=== PATIENT | male | born 1980 | race Caucasian/White ===

== ENCOUNTER 2019-02-09 09:34 | Emergency (ER) | payer MEDICARE, OTHER ==
--- NOTE | 2019-02-09 10:18 | ED ---
Upper Extremity Pain - HPI Summary HPI Summary: 39-year-old male who presents with ankle and wrist pain after fall yesterday. Patient states he is on the roof on a ladder approximately 16 feet, slipped off and fell. Patient attempted to grab the gutter on the way down. Patient landed on his left wrist and left ankle. No head trauma, no LOC. Patient has been ambulatory since there is reporting pain in the left ankle and left wrist. Pain is 3/10, achy worse in left ankle. Patient denies neck or back pain, hx of back surgery. Patient took Motrin for pain prior to arrival. Patient is requesting MRI, discussed with patient that this could be done outpatient if his x-rays are negative. Patient agreeable to x-rays. PMHx: ADHD for which he takes Adderall, substance use for which he takes Suboxone. Patient smokes tobacco and he drinks alcohol. Denies pertinent FHx. Surgical hx: back surgery. - History of Current Complaint Chief Complaint: EDFall Stated Complaint: FELL/INJURIES PER PT Time Seen by Provider: 02/09/19 09:46 Hx Obtained From: Patient Mechanism Of Injury: Fall From Height Of: - approximately 16 feet Onset/Duration: Started Days Ago - 1, Still Present Timing: Constant Severity Currently: Mild - 3/10 Pain Location: Wrist - left, Other: - left ankle Associated Signs & Symptoms: Positive: Negative - LOC. Negative: Back Pain, Neck Pain - Allergies/Home Medications Allergies/Adverse Reactions: Allergies Allergy/AdvReac Type Severity Reaction Status Date / Time No Known Allergies Allergy Verified 02/09/19 09:46 Home Medications: Home Medications ALPRAZolam TAB* [Xanax TAB*] 0.25 mg PO BID PRN 02/09/19 [History Confirmed ] Buprenorp/Nalox 8-2 MG SL TAB [Suboxone 8-2 mg SL TAB*] 1 tab.sl SL TID [History Confirmed 02/09/19] Dextroamphetamine/Amphetamine [Adderall Xr 30 mg Capsule] 30 mg PO DAILY [History Confirmed 02/09/19] Gabapentin TAB(NF) [Neurontin 600 mg TAB(NF)] 600 mg PO .5 TIMES DAILY 02/09/19 [History Confirmed 02/09/19] Ibuprofen TAB* [Advil TAB*] 200 mg PO Q6H PRN 02/09/19 [History Confirmed ] PMH/Surg Hx/FS Hx/Imm Hx Musculoskeletal History: Reports: Other Musculoskeletal History - herniated discs Sensory History: Denies: Hx Contacts or Glasses, Hx Hearing Aid Opthamlomology History: Denies: Hx Contacts or Glasses Psychiatric History: Reports: Hx Attention Deficit Hyperactivity Disorder, Hx Substance Abuse - Surgical History Surgery Procedure, Year, and Place: BLOOD CLOT- CELLULITIS-ABSCESS- [facility] Hx Anesthesia Reactions: No Infectious Disease History: No Infectious Disease History: Denies: Traveled Outside the [place] in Last 30 Days - Family History Known Family History: Negative: Cardiac Disease - Social History Alcohol Use: Occasionally Hx Substance Use: No Substance Use Type: Reports: Prescribed Substance Use Comment - Amount & Last Used: HX OF USE IN THE PAST BUT NOT IN RECENT YEARS, on Suboxone Hx Tobacco Use: Yes Smoking Status (MU): Heavy Every Day Tobacco Smoker Amount Used/How Often: 1 PPD X 18 YEARS Have You Smoked in the Last Year: Yes Review of Systems Musculoskeletal: Negative - neck pain, back pain Positive: Other - left wrist pain, left ankle pain Neurological: Negative - LOC All Other Systems Reviewed And Are Negative: Yes Physical Exam - Summary Physical Exam Summary: Constitutional: Well-developed, Well-nourished, Alert, Cooperative Skin: Warm, Dry, ecchymosis to medial malleolus left ankle HENT: Normocephalic, atraumatic. Midface stable, Dentition intact Eyes: EOM normal, PERRL Neck: Trachea is midline. No stridor; No JVD; No step off; No posterior cervical spine tenderness Cardio: Rhythm regular, rate normal Heart sounds normal; Intact distal pulses; The pedal pulses are 2+ and symmetric. Radial pulses are 2+ and symmetric. Pulmonary/Chest wall: Effort normal; Breath sounds normal; Equal chest rise; No flail segment; No rib tenderness; No sternal tenderness Abd: Soft, Appearance normal. No distension; No tenderness Musculoskeletal: Tenderness of the left ankle most of the medial malleolus and upper left foot, tenderness of the left wrist the distal radius and fourth and fifth MTPs. Full range of motion of wrist, sensation intact light touch. Otherwise, full ROM and no tenderness at bilateral hips, R ankle, bilateral shoulders, elbows and knees; No vertebral body tenderness; No paraspinal tenderness; No step off or deformity of the spine Neuro: Alert, Oriented x3, GCS 15. Strength 5/5 all extremities. Psych: Mood and affect Normal Triage Information Reviewed: Yes Vital Signs On Initial Exam: Initial Vitals Temp Pulse Resp BP Pulse Ox 97.6 F 75 16 117/73 99 02/09/19 09:42 02/09/19 09:42 02/09/19 09:42 02/09/19 09:42 02/09/19 09:42 Vital Signs Reviewed: Yes Procedures - Sedation Patient Received Moderate/Deep Sedation with Procedure: No Diagnostics - Vital Signs Vital Signs Temp Pulse Resp BP Pulse Ox 02/09/19 09:42 97.6 F 75 16 117/73 99 - Laboratory Lab Statement: Any lab studies that have been ordered have been reviewed, and results considered in the medical decision making process. - Radiology Left ankle x-ray Radiology Interpretation Completed By: Radiologist Summary of Radiographic Findings: NO EVIDENCE FOR FRACTURE. ED physician has reviewed this report. Left foot x-ray Radiology Interpretation Completed By: Radiologist Summary of Radiographic Findings: NO EVIDENCE FOR FRACTURE. ED physician has reviewed this report. Left hand x-ray Radiology Interpretation Completed By: Radiologist Summary of Radiographic Findings: NO ACUTE OSSEOUS INJURY. IF SYMPTOMS PERSIST, RECOMMEND REPEAT IMAGING. ED physician has reviewed this report. Left lower extremity x-ray Radiology Interpretation Completed By: Radiologist Summary of Radiographic Findings: No fracture identified. ED physician has reviewed this report. Left wrist x-ray Radiology Interpretation Completed By: Radiologist Summary of Radiographic Findings: NO ACUTE OSSEOUS INJURY. IF SYMPTOMS PERSIST, RECOMMEND REPEAT IMAGING. ED physician has reviewed this report. Re-Evaluation - Re-Evaluation Second Eval Re-Evaluation Time: 11:50 Change: Improved Comment: XR neg, ambulated in ED Course/Dx - Course Course Of Treatment: 39-year-old male presents after a fall yesterday with left wrist and left ankle pain. Ecchymosis left ankle on physical exam, tenderness of the distal wrist. Check plain films of the hand and wrist, ankle foot and tib-fib. Patient requesting MRI, will give him orthopedic follow-up when necessary - Diagnoses Provider Diagnoses: Fall, Left wrist pain, Left ankle pain Discharge ED - Sign-Out/Discharge Documenting (check all that apply): Patient Departure - Discharge - Discharge Plan Condition: Stable Disposition: HOME Patient Education Materials: Ankle Sprain (ED), Wrist Injury (ED) Referrals: Ruben Meyers MD [Medical Doctor] - If Needed Additional Instructions: You were seen in the emergency department for a fall. Your x-rays did not show any fractures. If any studies were not completed at the time of discharge you will be called with the relevant results. Please follow up with your primary care doctor in next 2-3 days and return to emergency department for worsening pain, or concerning symptoms. It was a pleasure taking care of you today. - Billing Disposition and Condition Condition: STABLE Disposition: Home - Attestation Statements Document Initiated by Vinny: Yes Documenting Scribe: Dana Salcedo Provider For Whom Vinny is Documenting (Include Credential): Win Rosenberg MD Scribe Attestation: Dana Farley, scribed for Win Rosenberg MD on 02/09/19 at 1223. Scribe Documentation Reviewed: Yes Provider Attestation: The documentation as recorded by the Dana anthony accurately reflects the service I personally performed and the decisions made by Win esteves MD Status of Scribe Document: Viewed
[2019-02-09 12:28] VITALS: BP 134/78
== END 2019-02-09 12:20 | disposition home or self-care (01) ==
LOC: ED 09:34
DX: M25.572 Pain in left ankle and joints of left foot (principal); M25.532 Pain in left wrist; W11.XXXA Fall on and from ladder, initial encounter; Y92.9 Unspecified place or not applicable; F90.9 Attention-deficit hyperactivity disorder, unspecified type; F17.200 Nicotine dependence, unspecified, uncomplicated; Z79.899 Other long term (current) drug therapy
CPT/HCPCS: 99282

== ENCOUNTER 2019-04-13 05:14 | Emergency (ER) | payer OTHER ==
--- NOTE | 2019-04-13 05:49 | ED ---
Throat Pain/Nasal Congestion - HPI Summary HPI Summary: Patient is a 39-year-old male who presents emergency department for dental pain since yesterday. Patient notes he has seen his dentist recently been having fillings placed. Patient believes feeling came off to back left molars. He denies associated symptoms of fever, chills, facial swelling, nausea, vomiting. Patient notes he has been using a dental filling in tooth which has helped with pain. Symptoms are mild in severity. Touching affected area makes symptoms worse. Rest makes symptoms better. - History of Current Complaint Chief Complaint: EDDentalPain Time Seen by Provider: 04/13/19 05:38 Hx Obtained From: Patient - Allergies/Home Medications Allergies/Adverse Reactions: Allergies Allergy/AdvReac Type Severity Reaction Status Date / Time No Known Allergies Allergy Verified 02/09/19 09:46 PMH/Surg Hx/FS Hx/Imm Hx Previously Healthy: Yes Musculoskeletal History: Reports: Other Musculoskeletal History - herniated discs Sensory History: Denies: Hx Contacts or Glasses, Hx Hearing Aid Opthamlomology History: Denies: Hx Contacts or Glasses Psychiatric History: Reports: Hx Attention Deficit Hyperactivity Disorder, Hx Substance Abuse - Surgical History Surgery Procedure, Year, and Place: BLOOD CLOT- CELLULITIS-ABSCESS- [facility] Hx Anesthesia Reactions: No - Immunization History Immunizations Up to Date: Yes Infectious Disease History: No Infectious Disease History: Denies: Traveled Outside the [place] in Last 30 Days - Family History Known Family History: Positive: Non-Contributory Negative: Cardiac Disease - Social History Occupation: Unemployed Lives: With Family Alcohol Use: Occasionally Alcohol Amount: 2-5 can a week Hx Substance Use: No Substance Use Type: Reports: Prescribed Substance Use Comment - Amount & Last Used: HX OF USE IN THE PAST BUT NOT IN RECENT YEARS, on Suboxone, marijuana,xanax Hx Tobacco Use: Yes Smoking Status (MU): Heavy Every Day Tobacco Smoker Amount Used/How Often: 1 PPD X 18 YEARS Have You Smoked in the Last Year: Yes Review of Systems Constitutional: Negative Negative: Fever Positive: Dental Pain Gastrointestinal: Negative Skin: Negative Positive: Headache All Other Systems Reviewed And Are Negative: Yes Physical Exam Triage Information Reviewed: Yes Vital Signs On Initial Exam: Initial Vitals Temp Pulse Resp BP Pulse Ox 98.4 F 70 18 156/91 98 04/13/19 05:16 04/13/19 05:16 04/13/19 05:16 04/13/19 05:16 04/13/19 05:16 Vital Signs Reviewed: Yes Appearance: Positive: Well-Appearing - Pt. sitting on bed in NAD. Skin: Positive: Warm, Dry Head/Face: Positive: Normal Head/Face Inspection Eyes: Positive: Normal, EOMI, LEEANNA ENT: Positive: Pharynx normal Dental: Positive: Other - Filling noted to postier bottom left molar. Pain on palpation of last molar. No drainable abscess noted. No swelling under tongue or submandibular edema. No trismus. Neck: Positive: Supple, Nontender, No Lymphadenopathy Neurological: Positive: Normal, CN Intact II-III Psychiatric: Positive: Affect/Mood Appropriate Procedures - Sedation Patient Received Moderate/Deep Sedation with Procedure: No Diagnostics - Vital Signs Vital Signs Temp Pulse Resp BP Pulse Ox 04/13/19 05:33 97.8 F 63 18 128/80 96 04/13/19 05:31 64 135/89 97 04/13/19 05:30 73 97 04/13/19 05:16 98.4 F 70 18 156/91 98 - Laboratory Lab Statement: Any lab studies that have been ordered have been reviewed, and results considered in the medical decision making process. EENT Course/Dx - Course Course Of Treatment: Patient with dentalgia. No evidence of wound makes angina or drainable abscess. Will started on Pen-Vee K. Tylenol or Motrin for pain as directed. To call dentist today for close follow-up. Will return to ER if symptoms change or worsen. - Differential Diagnoses Differential Diagnoses: Dental Abscess, Dental Caries - Diagnoses Provider Diagnoses: Dentalgia Discharge ED - Sign-Out/Discharge Documenting (check all that apply): Patient Departure - Discharge Plan Condition: Good Disposition: HOME Prescriptions: Penicillin VK 500 MG TAB(NF) [Penicillin VK 500 mg Tab] 500 mg PO QID #40 tab Patient Education Materials: Toothache (ED) Referrals: Migdalia Perales MD [Primary Care Provider] - Additional Instructions: Call your dentist today for a close follow up appointment Take antibiotic as directed Tylenol or Motrin for pain as directed Return to ER if symptoms change or worsen - Billing Disposition and Condition Condition: GOOD Disposition: Home
[2019-04-13] MEDS ORDERED: Penicillin VK TAB* 250 MG PO ONE (05:54)
[2019-04-13 05:56] VITALS: BP 140/85
== END 2019-04-13 06:16 | disposition home or self-care (01) ==
LOC: ED 05:14
DX: K08.89 Other specified disorders of teeth and supporting structures (principal); F90.9 Attention-deficit hyperactivity disorder, unspecified type; F17.200 Nicotine dependence, unspecified, uncomplicated
CPT/HCPCS: 99282; A9270-GY